=== PATIENT | male | born 1960 | race Hispanic/Latino ===

== ENCOUNTER → 2017-10-23 | Outpatient (CLI) | payer BC, MEDICARE ==
[~2017-10-23] MED LIST: LORAZEPAM INJ 2 MG/ML VIAL ONE
--- NOTE | 2017-10-23 11:40 | Diagnostic Imaging Report ---
Exam: Intracranial MRA without IV contrast History: Cerebellar ataxia Comparison studies: Multiple prior intracranial MRAs which date to 03/12/2009, most recent intracranial MRA of 11/25/2016 Technique: Axial 3-D [id number] with coronal, sagittal and 3-D MIP reformats. Axial DWI through the brain. Contrast: None Findings: Internal carotid arteries: Patent, no flow abnormalities. Middle cerebral arteries: Patent, no flow abnormalities in the M1 and proximal M2 segments. Anterior cerebral arteries: The right A1 segment is not identified and may be atretic or hypoplastic beyond resolution of MRA. Patent left A1 and bilateral A2 segments with patent anterior communicating artery. 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 Vertebral arteries: Patent, no flow abnormalities on the left. The right vertebral artery is not identified, similar to previous exams. Basilar artery: No flow abnormalities. Posterior cerebral arteries: No flow abnormalities. Anatomical variants: Acom: Visualized. Pcoms: Not visualized. Vertebral arteries: Co-dominant. Other: No restricted diffusion to suggest acute ischemia. IMPRESSION: No changes from the previous MRA of 11/25/2016. 1. 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 2. Nonvisualized right vertebral artery may reflect vessel aplasia/hypoplasia, be secondary to chronic proximal flow-limiting stenosis/vessel occlusion or retrograde flow. 3. 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 4. No additional intracranial MRA abnormalities. Signed by: Dr. Brayan Bautista M.D. on 10/23/2017 11:36 AM
== END ==
LOC: MRI 07:13
PROVIDERS: ATTEND Psychiatry & Neurology Neurology
DX: G32.81 Cerebellar ataxia in diseases classified elsewhere (principal)
CPT/HCPCS: 70544; J2060